=== PATIENT | male | born 1945 | race Caucasian/White ===

== ENCOUNTER 2020-09-01 04:51 | Inpatient (IN) | payer MEDICARE ==
[2020-09-01] VITALS (8 sets, daily range): BP systolic 126–156; BP diastolic 62–83
[~2020-09-01] VITALS: Ht 175.3 cm; Wt 91.3 kg
[~2020-09-01 04:51] MED LIST: CHLORTHALIDONE25 MG PO; CLOPIDOGREL75 MG PO; FLEXERIL10 MG PO; HYDROCODONE BIT1 T11 PO; LIPITOR20 MG PO; LISINOPRIL10 MG PO; LISINOPRIL20 MG PO; VENTOLIN0.09 MG/AC INH
[2020-09-01 06:05] LABS: BASO % 0.7 % (0.0-1.0); EOS # 0.1 10*3/uL (0.0-0.4); EOS % 2.5 % (1.0-4.0); HEMATOCRIT 37.6 % (42.0-52.0); LYMPH % 17.1 % (27.0-41.0); MEAN CELL VOLUME 86.4 fl (80.0-94.0); MEAN CORPUSCULAR HGB 27.6 pg (27.0-31.0); MEAN CORPUSCULAR HGB CONC 31.9 g/dl (33.0-37.0); MEAN PLATELET VOLUME 9.4 fl (9.6-12.3); MONO # 0.4 10*3/uL (0.1-1.0); MONO % 7.6 % (3.0-9.0); NEUT % 70.1 % (47.0-73.0); PLATELET COUNT AUTOMATED 293 10*3/uL (130-400); RED BLOOD COUNT 4.35 10*6/uL (4.50-5.90); RED CELL DISTRI WIDTH 14.9 % (0-14.5); WHITE BLOOD COUNT 5.6 10*3/uL (4.8-10.8)
[2020-09-01 06:20] LABS: INTERNATIONAL NORM RATIO 1.1 (2.0-3.5)
[2020-09-01 06:30] LABS: CREATININE 2.44 mg/dL (0.70-1.30); POTASSIUM 3.3 mmol/L (3.5-5.1); TOTAL PROTEIN 6.8 gm/dL (6.4-8.2)
[2020-09-01 06:38] LABS: TROPONIN I 0.058 ng/ml (<0.045)
[2020-09-01] MEDS ORDERED: Lopressor25 MG PO (14:19)
[2020-09-01] MEDS ORDERED: FUROSEMIDE40 MG PO (14:19)
[2020-09-01] MEDS ORDERED: AMLODIPINE BESY10 MG PO (14:19)
[2020-09-01] MEDS ORDERED: ATORVASTATIN CA20 M1 PO (14:19)
[2020-09-02] VITALS: BP 144/78
[2020-09-02 06:15] LABS: BASO % 0.4 % (0.0-1.0); CREATININE 2.43 mg/dL (0.70-1.30); HEMATOCRIT 40.1 % (42.0-52.0); LYMPH # 0.6 10*3/uL (1.3-4.4); LYMPH % 10.2 % (27.0-41.0); MEAN CELL VOLUME 86.6 fl (80.0-94.0); MEAN CORPUSCULAR HGB 27.4 pg (27.0-31.0); MEAN CORPUSCULAR HGB CONC 31.7 g/dl (33.0-37.0); MEAN PLATELET VOLUME 9.6 fl (9.6-12.3); MONO # 0.1 10*3/uL (0.1-1.0); MONO % 1.4 % (3.0-9.0); NEUT # 4.8 10*3/uL (2.3-7.9); NEUT % 86.6 % (47.0-73.0); PLATELET COUNT AUTOMATED 330 10*3/uL (130-400); RED BLOOD COUNT 4.63 10*6/uL (4.50-5.90); WHITE BLOOD COUNT 5.6 10*3/uL (4.8-10.8)
[2020-09-02 06:21] LABS: FREE T4 1.2 ng/dl (0.76-1.46); THYROID STIM HORMONE (HS) 1.01 uIU/ml (0.358-4.75)
[2020-09-02 06:35] LABS: INTERNATIONAL NORM RATIO 1.1 (2.0-3.5)
[2020-09-02 06:42] LABS: POTASSIUM 4.6 mmol/L (3.5-5.1)
[2020-09-02 08:00] VITALS: BP 148/75
[2020-09-02 08:59] LABS: FERRITIN 407.8 ng/mL (22.0-322.0); VITAMIN D, 25-HYDROXY 68.4 ng/mL (30-100)
[2020-09-02 12:00] VITALS: BP 136/50
[2020-09-02 16:00] VITALS: BP 126/50
[2020-09-02 20:00] VITALS: BP 147/67
[2020-09-03] VITALS: BP 153/84
[2020-09-03 06:14] LABS: BASO % 0.1 % (0.0-1.0); HEMATOCRIT 37.1 % (42.0-52.0); LYMPH # 0.8 10*3/uL (1.3-4.4); MEAN CELL VOLUME 86.5 fl (80.0-94.0); MEAN CORPUSCULAR HGB 27.5 pg (27.0-31.0); MEAN CORPUSCULAR HGB CONC 31.8 g/dl (33.0-37.0); MEAN PLATELET VOLUME 9.8 fl (9.6-12.3); MONO # 0.4 10*3/uL (0.1-1.0); MONO % 3.6 % (3.0-9.0); NEUT # 9.1 10*3/uL (2.3-7.9); NEUT % 86.8 % (47.0-73.0); PLATELET COUNT AUTOMATED 340 10*3/uL (130-400); RED BLOOD COUNT 4.29 10*6/uL (4.50-5.90); RED CELL DISTRI WIDTH 15.4 % (0-14.5); WHITE BLOOD COUNT 10.5 10*3/uL (4.8-10.8)
[2020-09-03 06:28] LABS: CREATININE 2.3 mg/dL (0.70-1.30); POTASSIUM 4.3 mmol/L (3.5-5.1); TOTAL PROTEIN 6.4 gm/dL (6.4-8.2)
[2020-09-03 08:00] VITALS: BP 137/88
[2020-09-03] MEDS ORDERED: ZITHROMAX250 MG PO (13:35)
[2020-09-03] MEDS ORDERED: OMNICEF300 MG PO (13:35)
== END 2020-09-03 14:46 | disposition home health service (06) | DRG 871 ==
LOC: ED 04:51 → EDHOLD 08:51 → 4E 08:51
PROVIDERS: Emergency Medicine; Internal Medicine; Social Worker Clinical; ADMIT Emergency Medicine; ATTEND Emergency Medicine
DX: A41.9 Sepsis, unspecified organism (principal); J18.9 Pneumonia, unspecified organism; N17.0 Acute kidney failure with tubular necrosis; J96.01 Acute respiratory failure with hypoxia; E44.0 Moderate protein-calorie malnutrition; J90 Pleural effusion, not elsewhere classified; J98.11 Atelectasis; D64.9 Anemia, unspecified; I50.9 Heart failure, unspecified; I25.10 Atherosclerotic heart disease of native coronary artery without angina pectoris; Z20.822 Contact with and (suspected) exposure to COVID-19; E87.6 Hypokalemia; D72.810 Lymphocytopenia; R73.9 Hyperglycemia, unspecified; R74.01 Elevation of levels of liver transaminase levels; F17.210 Nicotine dependence, cigarettes, uncomplicated; E78.2 Mixed hyperlipidemia; I11.0 Hypertensive heart disease with heart failure; Z82.49 Family history of ischemic heart disease and other diseases of the circulatory system; Z68.30 Body mass index [BMI] 30.0-30.9, adult; Z95.1 Presence of aortocoronary bypass graft; Z79.51 Long term (current) use of inhaled steroids; Z79.899 Other long term (current) drug therapy

== ENCOUNTER → 2023-02-16 | Outpatient (CLI) | payer MEDICARE ==
[~2023-02-16] MED LIST changes: +AMLODIPINE BESY10 MG PO; +ASPIRIN ADULT L81 M2 PO; +ATORVASTATIN CA20 M1 PO; +ATORVASTATIN CA40 M1 PO; +DECADRON6 M1 PO; +FUROSEMIDE40 MG PO; +Lopressor25 MG PO; +MUCUS RELIEF600 MG PO; +OMNICEF300 MG PO; +ZITHROMAX250 MG PO
[2023-02-16 14:37] LABS: BILIRUBIN Negative (Negative); BLOOD Trace-Lysed (Negative); CLARITY Clear (Clear); COLOR Yellow (Yellow); GLUCOSE 1+ (Negative); KETONE Negative (Negative); LEUKO ESTERASE Negative (Negative); NITRITE Negative (Negative); PH 6.5 (4.5-8.0); SPECIFIC GRAVITY 1.015 (1.001-1.030)
[2023-02-16 14:38] LABS: BASO % 0.7 % (0.0-1.0); EOS # 0.1 10*3/uL (0.0-0.4); EOS % 1.7 % (1.0-4.0); HEMATOCRIT 40.7 % (42.0-52.0); LYMPH # 1.7 10*3/uL (1.3-4.4); LYMPH % 30.2 % (27.0-41.0); MEAN CELL VOLUME 89.1 fl (80.0-94.0); MEAN CORPUSCULAR HGB 29.8 pg (27.0-31.0); MEAN CORPUSCULAR HGB CONC 33.4 g/dl (33.0-37.0); MEAN PLATELET VOLUME 9.2 fl (9.6-12.3); MONO # 0.5 10*3/uL (0.1-1.0); MONO % 8.7 % (3.0-9.0); NEUT # 3.4 10*3/uL (2.3-7.9); NEUT % 58.4 % (47.0-73.0); PLATELET COUNT AUTOMATED 159 10*3/uL (130-400); RED BLOOD COUNT 4.57 10*6/uL (4.50-5.90); RED CELL DISTRI WIDTH 13.7 % (0-14.5); WHITE BLOOD COUNT 5.8 10*3/uL (4.8-10.8)
[2023-02-16 14:47] LABS: URINE CREATININE RANDOM 86.74 mg/dL
[2023-02-16 14:48] LABS: BACTERIA TRACE; EPITHELIAL CELLS 0-2; WBC 0-2 wbc/hpf (0-5)
[2023-02-16 15:25] LABS: POTASSIUM 3.4 mmol/L (3.4-5.1)
[2023-02-16 15:29] LABS: VITAMIN D, 25-HYDROXY 40.4 ng/mL (30-100)
== END | disposition home or self-care (01) ==
LOC: LAB 13:45
PROVIDERS: ATTEND Internal Medicine Nephrology
DX: N18.4 Chronic kidney disease, stage 4 (severe) (principal); D63.1 Anemia in chronic kidney disease; R82.90 Unspecified abnormal findings in urine